=== PATIENT | female | born 1970 | race Caucasian/White ===

== ENCOUNTER → 2017-05-20 | Outpatient (REF) | payer OTHER | LOC: M LAB REF 12:58 | PROVIDERS: ATTEND Family Medicine | DX: Z12.4 Encounter for screening for malignant neoplasm of cervix (principal) ==

== ENCOUNTER → 2019-05-31 | Outpatient (REF) | payer OTHER ==
[2019-06-02 14:12] LABS: HPV HYBRID CAPTURE II Negative (Negative)
== END ==
LOC: M LAB REF 12:33
PROVIDERS: ATTEND Family Medicine
DX: Z30.433 Encounter for removal and reinsertion of intrauterine contraceptive device (principal)

== ENCOUNTER 2019-07-07 06:40 | Day surgery (SDC) | payer OTHER ==
[~2019-07-07] VITALS: Ht 152.4 cm; Wt 79.8 kg
[~2019-07-07 06:40] MED LIST: MIRE1IUD IU; MULTCAP PO
[2019-07-07] MEDS ORDERED: NS 1,000 ML IV ONE (07:00)
[2019-07-07] MEDS ORDERED: PROPOFOL 200 MG/20 ML VIAL As Ordered ONE ×2 (07:33→07:43)
--- NOTE | 2019-07-07 07:50 | ROOR ---
Patient Name: Yancy Joyner Procedure Date: 07/07/2019 7:29 AM Date of : 1970 Age: 49 Room: [facility] Gender: Female Note Status: Finalized Procedure: Colonoscopy Indications: Screening for colorectal malignant neoplasm Providers: DO Mitch Gonzalez MD: Juliana Can MD Requesting Provider: Medicines: Propofol per Anesthesia Complications: No immediate complications. Procedure: Pre-Anesthesia Assessment: - Prior to the procedure, a History and Physical was performed, and patient medications and allergies were reviewed. The patient is competent. The risks and benefits of the procedure and the sedation options and risks were discussed with the patient. All questions were answered and informed consent was obtained. Patient identification and proposed procedure were verified by the physician, the nurse, the anesthesiologist and the roving technician in the endoscopy suite. Mental Status Examination: alert and oriented. Airway Examination: normal oropharyngeal airway and neck mobility. Respiratory Examination: clear to auscultation. CV Examination: normal. Prophylactic Antibiotics: The patient does not require prophylactic antibiotics. Prior Anticoagulants: The patient has taken no previous anticoagulant or antiplatelet agents. ASA Grade Assessment: II - A patient with mild systemic disease. After reviewing the risks and benefits, the patient was deemed in satisfactory condition to undergo the procedure. The anesthesia plan was to use monitored anesthesia care (MAC). Immediately prior to administration of medications, the patient was re-assessed for adequacy to receive sedatives. The heart rate, respiratory rate, oxygen saturations, blood pressure, adequacy of pulmonary ventilation, and response to care were monitored throughout the procedure. The physical status of the patient was re-assessed after the procedure. The Colonoscope was introduced through the anus and advanced to the cecum, identified by appendiceal orifice and ileocecal valve. The colonoscopy was performed without difficulty. The patient tolerated the procedure well. Findings: Internal hemorrhoids were found during retroflexion. The hemorrhoids were mild. Two hyperplastic polyps were found in the rectum and ascending colon. The polyps were 5 to 8 mm in size. These polyps were removed with a hot snare. [Resection & Retrieval] was complete for the ascending colon polyp. . The rectal polyp was removed, but was unable to be retrieved. Impression: - Internal hemorrhoids. - Two 5 to 8 mm polyps in the rectum and in the ascending colon, removed with a hot snare. - No specimens collected. Recommendation: - Patient has a contact number available for emergencies. The signs and symptoms of potential delayed complications were discussed with the patient. Return to normal activities tomorrow. Written discharge instructions were provided to the patient. - Repeat colonoscopy in 3 - 5 years for surveillance based on pathology results. - Return to my office as previously scheduled. Eros Barillas DO 07/07/2019 7:50:19 AM Electronically signed by Eros Barillas DO Number of Addenda: 0 Note Initiated On: 07/07/2019 7:29 AM Estimated Blood Loss: Estimated blood loss was minimal.
[2019-07-07 08:05] VITALS: BP 136/85
== END 2019-07-07 08:32 | disposition home or self-care (01) ==
LOC: M OPP 06:40
PROVIDERS: ATTEND Surgery
DX: Z12.11 Encounter for screening for malignant neoplasm of colon (principal); K64.8 Other hemorrhoids; K62.1 Rectal polyp; D12.2 Benign neoplasm of ascending colon

== ENCOUNTER → 2021-09-01 | Outpatient (REF) | payer OTHER | LOC: M WUC 22:48 | PROVIDERS: ATTEND Nurse Practitioner Family | DX: R30.0 Dysuria (principal) ==

== ENCOUNTER → 2021-11-14 | Outpatient (REF) | payer OTHER | LOC: M LAB REF 17:07 | PROVIDERS: ATTEND Nurse Practitioner Family | DX: N39.0 Urinary tract infection, site not specified (principal) ==

== ENCOUNTER → 2021-12-03 | Outpatient (REF) | payer OTHER ==
[2021-12-04 13:45] LABS: APPEARANCE, URINE CLEAR (CLEAR); BACTERIA, URINE AUTO 1+ (NEGATIVE); BILIRUBIN, URINE AUTO NEGATIVE (NEGATIVE); BLOOD, URINE BLOOD NEGATIVE (NEGATIVE); COLOR, URINE YELLOW (YELLOW); GLUCOSE, URINE (UA) AUTO NEGATIVE (NEGATIVE); KETONE, URINE AUTO NEGATIVE (NEGATIVE); LEUKOCYTE ESTERASE, URINE AUTO NEGATIVE (NEGATIVE); NITRITE, URINE AUTO NEGATIVE (NEGATIVE); PROTEIN, URINE AUTO NEGATIVE (NEGATIVE); RBC, URINE AUTO 1 /HPF (0-3); SPECIFIC GRAVITY URINE AUTO 1.003 (1.002-1.035); SQUAMOUS EPITHELIAL CELL UR AU 0 /HPF (0-6); UROBILINOGEN, URINE AUTO 0.2 mg/dL (0.0-2.0); WBC, URINE AUTO 0 /HPF (0-3)
== END ==
LOC: M SMT 12:54
PROVIDERS: ATTEND Nurse Practitioner Women's Health
DX: R39.15 Urgency of urination (principal)

== ENCOUNTER → 2023-07-30 | Outpatient (REF) | payer OTHER | LOC: M LAB REF 15:45 | PROVIDERS: ATTEND Registered Nurse | DX: Z01.419 Encounter for gynecological examination (general) (routine) without abnormal findings (principal) | CPT/HCPCS: 87624; G0123 ==

== ENCOUNTER 2024-06-16 07:05 | Day surgery (SDC) | payer OTHER ==
[~2024-06-16] VITALS: Ht 152.4 cm; Wt 80.0 kg
[~2024-06-16 07:05] MED LIST changes: +LOSA25TA13 PO; +MULTTAB61 PO
[2024-06-16] MEDS: NS 1,000 ML IV ONE (07:37)
[2024-06-16] MEDS ORDERED: propofoL 200 MG/20 ML VIAL As Ordered ONE (07:58)
[2024-06-16 08:10] VITALS: TEMP 97.8
[2024-06-16 08:27] VITALS: BP 111/67; O2SAT 97
== END 2024-06-16 08:33 | disposition home or self-care (01) ==
LOC: M OPP 07:05
PROVIDERS: ATTEND Surgery
DX: Z12.11 Encounter for screening for malignant neoplasm of colon (principal); Z86.010 Personal history of colon polyps; K64.1 Second degree hemorrhoids; I10 Essential (primary) hypertension; Z79.3 Long term (current) use of hormonal contraceptives; Z79.51 Long term (current) use of inhaled steroids; Z79.899 Other long term (current) drug therapy